=== PATIENT | male | born 1960 | race African-American/Black ===

== ENCOUNTER 2024-07-27 15:02 | Outpatient (AMB) | payer OTHER, SELFPAY ==
--- NOTE | 2024-07-27 15:12 | MHC.OFFVIS ---
Vital Signs 07/27/24 15:14 Height 5 ft 6 in Weight 185 lb 3.013 oz BMI 29.9 BP 151/79 H Blood Pressure Location Lt brachial Position Sitting Pulse 98 Intake Visit Reasons: Consult Intake Note: Rich presents in the office as as new patient. CC: HE states that the main reason he is here is due for a cyst on his pancreas. In addition he is also due for his 10 year colonoscopy. 2 weeks ago he had a bleeding hemorrhoid but he states since he has gotten better and there is no more blood but it was pretty severe for him. [employer] Supervisor Required: No Allergies No Known Allergies Allergy (Verified 07/27/24 15:14) HPI Comments Details: 64 y.o M with PMH of panc cyst for which he is here. Records reviewed - was incidentally noted to have 16 mm panc body cyst without any red flags. Since then had q6m MRI x 2 years and then a yearly MRI 05/2024 without any change. Pt himself without any abd pain, N,V. No unintentional weight loss. No etOH use or pancreatitis hx. No fam hx of pancreatic ca. In terms of CRC screening, last colo was > 10 years ago. PT had done a cologuard 05/2024 but exact sciences never received it. Now interested in just getting colo done. [facility] Surgical History (Updated 07/27/24 @ 15:14 by YEIMY Nguyen) Hx of colonoscopy Review of Systems Const All systems reviewed & are unremarkable except as noted in HPI and below Physical Exam Vital Signs: Last Vital Signs Pulse 98 07/27/24 15:14 BP 151/79 H 07/27/24 15:14 BMI result Body Mass Index 29.9 No apparent distress Nonicteric Abdomen soft, nondistended Alert and oriented x3, normal gait Assessment & Plan Assessment & Plan (1) Pancreatic cyst: Code(s): K86.2 - Cyst of pancreas Category: Medical (2) Colon cancer screening: Code(s): Z12.11 - Encounter for screening for malignant neoplasm of colon Category: Medical Plan 1. Panc body cyst Measures 16 mm, stable since 2021. No red flags to including enhancement, intramural nodule, PD dil. Plan: - Based on ACG guidelines, recommend repeat MRI in 2 years i.e may 2026. - If grows > 3 mm, can consider EUS at that time. 2. CRC screening Due. Cologuard not processed. Plan: - Elective colo to be booked - PEG Rxed and instructions with handout provided Follow up as needed Medications: New peg 3350-electrolytes [id number] -5.86 gram (Golytely) as per split prep instructions, until fecal effluent is clear 240 mL PO Q10M 4,000 mL 0RF colonoscopy Coding Level of Care Code New Pt Level 4 (84346) Diagnoses Pancreatic cyst K86.2 Colon cancer screening Z12.11
[2024-07-27 15:14] VITALS: BP 151/79; PULSE 98; BMI 29.9
--- OUTSIDE RECORDS SUMMARY | 2024-07-27 18:35 | XMS_ITS | Clinical Summary ---
Author Organization [facility] [place] [address] Care Team Providers Care Hay Buckler Name Role Phone Dion Tai DO Primary Care Provider [phone] Social History Tobacco Use Types Packs/Day Years Used Date Smoking Tobacco: Never Assessed Sex and Gender Information Value Date Recorded Sex Assigned at Not on file Legal Sex Male 8:43 PM EST Gender Identity Not on file Sexual Orientation Not on file Last Filed Vital Signs Vital Sign Reading Time Taken Comments Blood Pressure 126/82 08/13/2022 10:33 AM EDT Pulse 78 08/13/2022 10:33 AM EDT Temperature - - Respiratory Rate - - Oxygen Saturation - - Inhaled Oxygen Concentration - - Weight 88 kg (194 lb) 08/13/2022 10:33 AM EDT Height 167.6 cm (5' 6 ) 08/13/2022 10:33 AM EDT Body Mass Index 31.31 08/13/2022 10:33 AM EDT Plan of Treatment Health Maintenance Due Date Last Done Comments DTaP,Tdap,and Td Vaccines (1 - Tdap) 1980 Pneumococcal Vaccine: 50+ Ye ars (1 of 1 - PCV) 2011 Zoster Vaccines (1 of 2) 2011 Cholesterol Screening (Lipid Panel) 05/03/2022 Colorectal Cancer Screening: Colonoscopy 05/03/2022 Depression Screening 05/03/2022 HIV Screening 05/03/2022 Hepatitis C Screening 05/03/2022 Social Influencers of Health Screening 05/03/2022 COVID-19 Vaccine (1 - 2023-2 5 season) 2024 Influenza Vaccine (#1) 2024 RSV Immunization Patients 60 + Years Old (1 - 1-dose 75+ series) 2036 HIB Vaccines Aged Out No longer eligi ble based on patient's age to complete this topic HPV Vaccines Aged Out No longer eligi ble based on patient's age to complete this topic Hepatitis A Vaccines Aged Out No long er eligible based on patient's age to complete this topic Hepatitis B Vaccines Aged Out No long er eligible based on patient's age to complete this topic IPV Vaccines Aged Out No longer eligi ble based on patient's age to complete this topic MMR Vaccines Aged Out No longer eligi ble based on patient's age to complete this topic Meningococcal ACWY Vaccine Aged Out N o longer eligible based on patient's age to complete this topic Meningococcal B Vacine Aged Out No lo nger eligible based on patient's age to complete this topic Pneumococcal Vaccine: Pediat rics (0 to 5 Years) and At-Risk Patients (6 to 64 Years) Aged Out No longer eligible b ased on patient's age to complete this topic RSV Immunization Patients Un bradley 20 months Aged Out No longer eligible b ased on patient's age to complete this topic Varicella Vaccines Aged Out No longer eligible based on patient's age to complete this topic Advance Directives Documents on File Type Date Recorded 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
== END 2024-07-27 16:09 | disposition home or self-care (01) ==
PROVIDERS: PCP Internal Medicine; Visit Provider Internal Medicine
DX: K86.2 Cyst of pancreas (principal); Z12.11 Encounter for screening for malignant neoplasm of colon
CPT/HCPCS: 99204